=== PATIENT | female | born 1955 | race Caucasian/White ===

== ENCOUNTER 2018-05-30 06:32 | Outpatient (CLI) | payer BC ==
[2018-05-30 13:21] LABS: #Basophils 0.1 thou/uL (0.0-0.2); #Eosinphils 0.3 thou/uL (0.0-0.7); #Monocytes 0.6 thou/uL (0.11-0.59); #Neutrophils 4.8 thou/uL (1.40-6.50); %Basophils 0.9 % (0.0-1.0); %Eosinophils 3.5 % (0.0-10.0); %Lymphocytes 33.9 % (21.0-51.0); %Monocytes 6.5 % (0.0-10.0); %Neutrophils 55.2 % (42.0-75.0); Hemoglobin 13.5 g/dL (12.0-16.0); Mean Corpuscular HGB CONC 32.1 g/dL (32.0-36.0); Mean Corpuscular Hemoglobin 29.1 pg (27.0-31.0); Mean Corpuscular Volume 90.6 fL (78.0-98.0); Mean Platelet Volume 7.5 fL (7.4-10.4); Platelet Count 291 thou/uL (130-400); RBC Distribution Width 12.3 % (11.5-14.5); Red Blood Cell (RBC) Count 4.63 mill/uL (4.20-5.40); White Blood Cell (WBC) Count 8.8 thou/uL (4.8-10.8)
[2018-05-30 13:40] LABS: Anion Gap 11 mmol/L (10-20); BUN (Urea Nitrogen) 18 mg/dL (9.8-20.1); Calc. Creatinine Clearance 0 mL/min (70-130); Calcium 9.6 mg/dL (7.8-10.44); Carbon Dioxide 29 mmol/L (22-29); Chloride 104 mmol/L (98-107); Estimated GFR-MDRD 90; Glucose 84 mg/dL (70-105); Potassium 4.2 mmol/L (3.5-5.1); Sodium 140 mmol/L (136-145)
[2018-05-30 14:22] LABS: INR-International Normal Ratio 0.9; Prothrombin Time 12.7 SEC (12.0-14.7)
--- NOTE | 2018-05-31 21:02 | EKG ---
Test Reason : Blood Pressure : / mmHG Vent. Rate : 076 BPM Atrial Rate : 076 BPM P-R Int : 158 ms QRS Dur : 084 ms QT Int : 376 ms P-R-T Axes : 083 -36 033 degrees QTc Int : 423 ms Normal sinus rhythm Left axis deviation Pulmonary disease pattern Abnormal ECG When compared with ECG of 02-NOV-2016 16:54, No significant change was found Confirmed by Tim GRESHAM ([id number]) on 05/31/2018 9:02:26 PM Referred By: WILLY Confirmed By:Tim GRESHAM
== END 2018-05-30 06:33 | disposition home or self-care (01) ==
LOC: LABBT 06:32
PROVIDERS: ATTEND Orthopaedic Surgery
DX: Z01.818 Encounter for other preprocedural examination (principal); M17.11 Unilateral primary osteoarthritis, right knee
CPT/HCPCS: 80048; 85025; 85610; 87081; 93005; 93010

== ENCOUNTER 2018-05-30 09:15 | Inpatient (IN) | payer BC ==
[2018-05-30 09:44] VITALS: BMI 49.3
[2018-06-04] MEDS ORDERED: CEFAZOLIN 2 GM/50 ML BAG ONE (05:57)
[2018-06-04] MEDS ORDERED: Tranexamic Acid 1,000 MG/10 ML VIAL ONE ×2 (05:57→08:45)
[2018-06-04] MEDS ORDERED: Sodium Chloride 0.9% 100 ML ONE (05:57)
[2018-06-04] MEDS ORDERED: Fentanyl 100 MCG/2 ML VIAL ONE ×4 (06:21→09:08)
[2018-06-04] MEDS ORDERED: Midazolam HCl 2 mg/2 ml Vial ONE (06:21)
[2018-06-04] MEDS ORDERED: Lidocaine 1% (PF) 30 ML VIAL ONE (06:28)
[2018-06-04] MEDS ORDERED: Promethazine HCl 25 MG/ML VIAL IM PRN ×3 (06:35→08:47)
[2018-06-04] MEDS ORDERED: traMADol HCl 50 MG TAB PO PRN ×2 (06:35)
[2018-06-04] MEDS ORDERED: Ondansetron PF 4 MG/2 ML Vial IVP PRN ×2 (06:35→08:47)
[2018-06-04] MEDS ORDERED: Ropivacaine 0.2% 550 ML 550 ML NERVE BLCK SCH (06:35)
[2018-06-04] MEDS ORDERED: Zolpidem Tartrate 5 MG TAB PO PRN ×2 (06:35→08:47)
[2018-06-04] MEDS ORDERED: Ondansetron HCl/PF 4 MG/2 ML Vial IVP PRN (07:39)
[2018-06-04] MEDS ORDERED: Promethazine HCl 25 MG/ML VIAL SLOW IVP PRN (07:39)
[2018-06-04] MEDS ORDERED: Acetaminophen 325 MG TAB PO PRN (08:47)
[2018-06-04] MEDS ORDERED: diphenhydrAMINE 25 MG CAP PO PRN (08:47)
[2018-06-04] MEDS ORDERED: CEFAZOLIN/Water 2 GM/20 ML SYRINGE SLOW IVP SCH (09:00)
--- NOTE | 2018-06-04 09:22 | RAD ---
RIGHT KNEE TWO VIEWS: History: Post op. FINDINGS: The total knee prosthesis is in good position. No signs of fracture. IMPRESSION: Placement of a total knee prosthesis. POS: [facility]
[2018-06-04] MEDS: Aspirin 81 mg Enteric Coated Tablet PO SCH ×2 (10:23→21:22)
[2018-06-04] MEDS: Multivitamin W/ Minerals 1 TAB PO SCH (10:27)
[2018-06-04] MEDS: Ferrous Gluconate 324 MG TAB PO SCH ×2 (10:27→19:42)
[2018-06-04] MEDS: Senokot S 8.6-50 MG TAB PO SCH ×2 (10:28→19:42)
[2018-06-04] MEDS: Fentanyl 100 MCG/2 ML VIAL IV PRN ×2 (10:34→12:16)
[2018-06-04] MEDS ORDERED: Loperamide HCl 2 MG CAP PO PRN (11:00)
[2018-06-04] MEDS ORDERED: Cepastat Lozenges 1 LOZ PO PRN (11:00)
[2018-06-04] MEDS ORDERED: Artificial Tears 18 DROP/0.9 ML EA EYE PRN (11:00)
[2018-06-04] MEDS ORDERED: Diabetic Tussin 200 MG/10 ML UDCUP PO PRN (11:00)
[2018-06-04] MEDS ORDERED: Eucerin (Mineral Oil/Petrolatum,White) 30 gm Jar TOP PRN (11:00)
[2018-06-04] MEDS ORDERED: hydrALAZINE 20 MG/ML VIAL SLOW IVP PRN (11:00)
[2018-06-04] MEDS ORDERED: Sodium Chloride 0.65% Nasal 44 ML BOT EA NARE PRN (11:00)
--- NOTE | 2018-06-04 11:04 | PDOC.PN ---
- Subjective Encounter Start Date: 06/04/18 Encounter Start Time: 14:00 -: old records requested/rev consulted for medical management s/p right knee replacement pain controlled Patient seen and examined. No new complaints. - Objective Resuscitation Status - Order Detail: 06/04/18 11:00 Resuscitation Status Routine Resuscitation Status: FULL: Full Resuscitation MAR Reviewed: Yes Vital Signs & Weight: Vital Signs (12 hours) Temp Pulse Resp BP Pulse Ox 06/04/18 10:00 97.3 F L 69 16 166/80 H 98 Weight Weight 315 lb Additional Labs: old [employer] report reviewed Radiology Reviewed by me: Yes EKG Reviewed by me: Yes (pulmonary disease pattern) Phys Exam - Physical Examination Constitutional: NAD HEENT: PERRLA, moist MMs, sclera anicteric Neck: no JVD, supple Respiratory: no wheezing, no rales, no rhonchi Cardiovascular: RRR, no significant murmur, no rub Gastrointestinal: soft, non-tender, no distention, positive bowel sounds morbid obesity Musculoskeletal: no edema, pulses present surgical site with dressing, nerve block+, sims+ Neurological: non-focal, normal sensation, moves all 4 limbs Lymphatic: no nodes Psychiatric: normal affect, A&O x 3 Skin: no rash, normal turgor Dx/Plan (1) Status post total right knee replacement Code(s): Z96.651 - PRESENCE OF RIGHT ARTIFICIAL KNEE JOINT Status: Acute (2) Degenerative joint disease (DJD) of lumbar spine Code(s): M47.816 - SPONDYLOSIS W/O MYELOPATHY OR RADICULOPATHY, LUMBAR REGION Status: Chronic (3) Morbid obesity with BMI of 45.0-49.9, adult Code(s): E66.01 - MORBID (SEVERE) OBESITY DUE TO EXCESS CALORIES; Z68.42 - BODY MASS INDEX (BMI) 45.0-49.9, ADULT Status: Chronic (4) Osteoarthritis Code(s): M19.90 - UNSPECIFIED OSTEOARTHRITIS, UNSPECIFIED SITE Status: Chronic - Plan cont current plan of care, plan discussed w/ family, PT/OT * medication reviewed as below * symptomatic treatment * continue aspirin for DVT prophylaxis * add pepcid for GI prophylaxis * code status full code * nerve block as per anesthesia * PT/OT as per JU protocol treatment. * discussed with family bedside Review of Systems - Review of Systems ENT: negative: Ear Pain, Ear Discharge, Nose Pain, Nose Discharge, Nose Congestion, Mouth Pain, Mouth Swelling, Throat Pain, Throat Swelling, Other Respiratory: negative: Cough, Dry, Shortness of Breath, Hemoptysis, SOB with Excertion, Pleuritic Pain, Sputum, Wheezing Cardiovascular: negative: chest pain, palpitations, orthopnea, paroxysmal nocturnal dyspnea, edema, light headedness, other Gastrointestinal: negative: Nausea, Vomiting, Abdominal Pain, Diarrhea, Constipation, Melena, Hematochezia, Other Genitourinary: negative: Dysuria, Frequency, Incontinence, Hematuria, Retention , Other Musculoskeletal: negative: Neck Pain, Shoulder Pain, Arm Pain, Back Pain, Hand Pain, Leg Pain, Foot Pain, Other Skin: negative: Rash, Lesions, Fabrizio, Bruising, Other - Medications/Allergies Allergies/Adverse Reactions: Allergies Allergy/AdvReac Type Severity Reaction Status Date / Time No Known Allergies Allergy Verified 05/30/18 09:44 Medications: Current Medications Acetaminophen (Tylenol) 650 mg PO Q4H PRN PRN Reason: Headache/Fever or Pain Hydrocodone Bitart/Acetaminophen ([place] 10/325) 1 tab PO Q4H PRN PRN Reason: Pain (1-3) 2ND LINE Hydrocodone Bitart/Acetaminophen ([place] 10/325) 2 tab PO Q4H PRN PRN Reason: PAIN (4-6) 2ND LINE Artificial Tears (Tears Naturale) 2 drop EA EYE PRN PRN PRN Reason: Dry Eyes Aspirin (Ecotrin) 81 mg PO BID [facility] Last Admin: 06/04/18 10:23 Dose: Not Given Diphenhydramine HCl (Benadryl) 25 mg PO Q6H PRN PRN Reason: Itching Famotidine (Pepcid) 20 mg PO BID [facility] Fentanyl (Sublimaze) 50 mcg IV Q1H PRN PRN Reason: Breakthrough Pain Last Admin: 06/04/18 10:34 Dose: 50 mcg Ferrous Gluconate (Fergon) 324 mg PO BID [facility] Last Admin: 06/04/18 10:27 Dose: Not Given Guaifenesin (Robitussin Sf) 200 mg PO Q4H PRN PRN Reason: Cough Hydralazine HCl (Apresoline) 10 mg SLOW IVP Q4H PRN PRN Reason: SBP > 180 and HR < 70 Ropivacaine (Ropivacaine 0.2% 550 Ml) 550 mls @ 10 mls/hr NERVE BLCK INF [facility] Cefazolin Sodium/Dextrose 2 gm (/ Device) 50 mls @ 100 mls/hr IVPB Q8HR [facility] Stop: 06/04/18 22:29 Iron/Minerals/Multivitamins (Theragran M) 1 tab PO DAILY [facility] Last Admin: 06/04/18 10:27 Dose: Not Given Ketorolac Tromethamine (Toradol) 30 mg IVP Q6H PRN PRN Reason: Moderate Pain (4-6) Stop: 06/07/18 06:36 Loperamide HCl (Imodium) 2 mg PO PRN PRN PRN Reason: Diarrhea/Loose Stools Mineral Oil/White Petrolatum (Eucerin Cream) 0 gm TOP BIDPRN PRN PRN Reason: Dry Skin Ondansetron HCl (Zofran) 4 mg IVP Q6H PRN PRN Reason: Nausea/Vomiting Promethazine HCl (Phenergan) 12.5 mg IM Q4H PRN PRN Reason: Nausea/Vomiting Senna/Docusate Sodium (Senokot S) 2 tab PO BID [facility] Last Admin: 06/04/18 10:28 Dose: Not Given Sodium Chloride (Flush - Normal Saline) 10 ml IVF PRN PRN PRN Reason: Saline Flush Sodium Chloride ([place] Nasal [place] 0.65%) 0 ml EA NARE QIDPRN PRN PRN Reason: Nasal Congestion Throat Lozenges (Cepastat Lozenges) 1 jyoti PO Q2H PRN PRN Reason: Sore Throat Tramadol HCl (Ultram) 50 mg PO Q6H PRN PRN Reason: Mild Pain (1-3) Tramadol HCl (Ultram) 100 mg PO Q6H PRN PRN Reason: Moderate Pain 4-6 Zolpidem Tartrate (Ambien) 5 mg PO HSPRN PRN PRN Reason: Insomnia
--- NOTE | 2018-06-04 12:35 | OP ---
DATE OF PROCEDURE: 06/04/2018 PREOPERATIVE DIAGNOSIS: Degenerative joint disease, right knee. POSTOPERATIVE DIAGNOSIS: Degenerative joint disease, right knee. PROCEDURE PERFORMED: Right total knee arthroplasty. ASSISTANT CASINO SHIFT MANAGER: Mari Leija PA-C. BLOOD LOSS: Minimal. SPECIMEN: None. DRAINS: None. COMPLICATION: None. IMPLANTS USED: [place] triathlon 4 femur, 4 tibia, 9 mm CS X3 polyethylene, and a 32 patella. PROCEDURE IN DETAIL: After informed consent was obtained in the preoperative holding area, the patient was taken to the operative suite where general anesthesia was induced. Once adequate level of general anesthesia was obtained, the patient was positioned and a well-padded tourniquet was placed around the right proximal thigh. The right lower extremity was then prepped and draped in the usual sterile fashion. Prior to exsanguination, a time-out was called and all members of the surgical team agreed upon site, surgeon, and patient. The extremity was then exsanguinated and the tourniquet was raised. A midline longitudinal incision was then made directly over the patella extending 2 fingerbreadths above the superior pole of the patella and 2 fingerbreadths inferior to the inferior patellar pole of the patella. Deeper subcutaneous layers were dissected sharply and local bleeding was controlled with Bovie electrocautery. A quad tendon longitudinal split was then made sharply and a median parapatellar arthrotomy was carried out both sharp and with Bovie electrocautery, carried down to 1 fingerbreadth medial to the tibial tubercle. The knee was then placed into flexion and the patella was everted nicely, and a copious fat pad ectomy was performed allowing for greater exposure of the tibia. The computer-assisted distal femoral fiducial was then placed and pinned firmly, and the distal femoral cutting guide was pinned firmly into place. The oscillating saw was then used to remove the appropriate amount of bone. The 4-in-1 cutting block was then placed on the distal femur and the oscillating saw was used to remove the appropriate amount of bone off the anterior, posterior, and chamfer cuts. After completion of bone cuts, the anterior cruciate ligament was resected sharply and the posterior cruciate ligament retractor was placed and the tibia was subluxed for better exposure. Partial meniscectomies were carried out, and the tibial computer-assisted fiducial was pinned, and the cutting guide was placed. Oscillating saw was then used to remove the bone, with Hohmann retractors used to take care and protect the collateral ligaments. After the tibial resection was performed, a laminar shift production associate was placed in between the freshened bone cuts. The knee placed at 90 degrees and further bilateral meniscectomies were carried out, and the curved osteotome and curettage were used to remove any excess bone spurs in the posterior compartment. The trial femoral component, tibial baseplate were placed with the appropriate polyethylene trial insert with an appropriate polyethylene spacer and patellar button. The knee was taken through full range of motion with flexion and extension from 0 to 90 degrees and patellar broach squarely in the trochlea without any squinting or subluxation noted. The knee was also stable to varus and valgus stressing at 0, 15, 45, and 90 degrees of flexion. The drawer was negative. All trial components were then removed and the keel punch was used to provide the appropriate defect in the tibia with a mallet. The freshened bone cuts were copiously irrigated with pulsatile lavage of about 1.5 L to remove all excess debris. The freshened bone cuts were then dried with suction and lap sponge. The knee was placed in flexion and retractors were placed to provide access to all bone cuts. Tobramycin-impregnated methyl methacrylate cement was then placed on the freshened bone cuts and implants which were malleted firmly into place. Curettage and [place] elevators were used to remove any excess bone cement. The knee was placed into full extension and the patellar button was placed under compression, and the cement was allowed to cure. Once completed, the components were again taken through full range of motion and copious irrigation of the knee was carried out with another liter of normal saline. All components were inspected fully with full range of motion and varus and valgus stressing. There was no laxity noted and full extension was observed clinically. Primary closure was accomplished with #2 interrupted Vicryl stitch of the arthrotomy defect. This was oversewn with a #2 running Quill barbed stitch. The gravitational platelet system was then injected into the arthrotomy prior to closure. The subcutaneous layer was then closed with a running 0 barbed Monocryl stitch and skin closure accomplished with a running subcuticular 3-0 Monocryl barbed Quill stitch and augmented with cement on the skin. Tourniquet was lowered. Good spontaneous return of distal pulses was noted clinically and a sterile dressing was applied to the incision. The procedure was terminated without any complications. The patient was awakened in the operative suite and the patient was taken to the recovery room in stable condition. Job ID: [id number]
[2018-06-04] MEDS: HYDROcodone/Acetaminophen 10/325 mg Tablet PO PRN ×2 (14:43→21:28)
[2018-06-04] MEDS: CEFAZOLIN 2 GM/50 ML-DEXTROSE 2 GM in Premix Bag 1 BAG IVPB SCH ×2 (14:46→21:23)
[2018-06-04] MEDS ORDERED: Ropivacaine 0.5% HCl/PF (150 MG/30 ML VIAL) ONE (15:31)
[2018-06-04] MEDS ORDERED: Ropivacaine 0.2% HCl/PF (40 MG/20 ML VIAL) ONE (15:31)
[2018-06-04] MEDS ORDERED: Bupivacaine 0.25% HCL 30 ML VIAL ONE (15:31)
[2018-06-04] MEDS ORDERED: Ondansetron PF 4 MG/2 ML Vial ONE (16:34)
[2018-06-04] MEDS ORDERED: Lidocaine 1% PF 5 ML VIAL ONE (16:34)
[2018-06-04] MEDS ORDERED: ePHEDrine/0.9% NaCl/PF SYRINGE 50 mg/10 ml ONE (16:34)
[2018-06-04] MEDS ORDERED: PHENYLEPHRINE-NS 100 MCG/ML 10 ML SYRINGE ONE (16:34)
[2018-06-04] MEDS ORDERED: Rocuronium Bromide 10 MG/ML (10ML VIAL) ONE (16:34)
[2018-06-04] MEDS ORDERED: Ketorolac Tromethamine 30 MG/ML VIAL ONE (16:34)
[2018-06-04] MEDS ORDERED: PROPOFOL 200 MG/20 ML VIAL ONE (16:34)
[2018-06-04] MEDS ORDERED: Glycopyrrolate 0.2 MG/ML 5 ML SYRINGE ONE (16:34)
[2018-06-04] MEDS: Ketorolac Tromethamine 30 MG/ML VIAL IVP PRN (17:38)
[2018-06-04] MEDS: Famotidine 20 MG TAB PO SCH (21:22)
[2018-06-05] MEDS: HYDROcodone/Acetaminophen 10/325 mg Tablet PO PRN ×2 (02:07→05:54)
[2018-06-05] MEDS: Ketorolac Tromethamine 30 MG/ML VIAL IVP PRN ×3 (04:40→23:13)
[2018-06-05] MEDS: Fentanyl 100 MCG/2 ML VIAL IV PRN (04:46)
[2018-06-05 08:15] LABS: Hemoglobin 10.7 g/dL (12.0-16.0); Mean Corpuscular HGB CONC 33.1 g/dL (32.0-36.0); Mean Corpuscular Hemoglobin 30.8 pg (27.0-31.0); Mean Corpuscular Volume 92.9 fL (78.0-98.0); Mean Platelet Volume 7.6 fL (7.4-10.4); Platelet Count 234 thou/uL (130-400); RBC Distribution Width 11.9 % (11.5-14.5); Red Blood Cell (RBC) Count 3.49 mill/uL (4.20-5.40); White Blood Cell (WBC) Count 8.5 thou/uL (4.8-10.8)
[2018-06-05] MEDS: Senokot S 8.6-50 MG TAB PO SCH ×2 (08:29→20:31)
[2018-06-05] MEDS: Multivitamin W/ Minerals 1 TAB PO SCH (08:30)
[2018-06-05] MEDS: Ferrous Gluconate 324 MG TAB PO SCH ×2 (08:30→20:31)
[2018-06-05] MEDS: Aspirin 81 mg Enteric Coated Tablet PO SCH ×2 (08:30→20:31)
[2018-06-05] MEDS: Famotidine 20 MG TAB PO SCH ×2 (08:30→20:31)
--- NOTE | 2018-06-05 12:29 | PDOC.PN ---
- Subjective Encounter Start Date: 06/05/18 Encounter Start Time: 08:50 Patient seen and examined. No new complaints. No overnight events - Objective Resuscitation Status - Order Detail: 06/04/18 11:00 Resuscitation Status Routine Resuscitation Status: FULL: Full Resuscitation MAR Reviewed: Yes Vital Signs & Weight: Vital Signs (12 hours) Temp Pulse Resp BP Pulse Ox 06/05/18 07:45 96 06/05/18 07:33 98.6 F 77 20 130/72 95 06/05/18 04:50 98.2 F 86 18 128/72 96 Weight Weight 315 lb I&O: 06/04/18 06/05/18 06/06/18 06:59 06:59 06:59 Intake Total 2660 Output Total 1750 Balance 910 Result Diagrams: 06/05/18 07:15 Phys Exam - Physical Examination Constitutional: NAD HEENT: PERRLA, moist MMs, sclera anicteric Neck: no JVD, supple Respiratory: no wheezing, no rales, no rhonchi Cardiovascular: RRR, no significant murmur, no rub Gastrointestinal: soft, non-tender, no distention, positive bowel sounds Musculoskeletal: no edema, pulses present surgical site with dressing, nerve block in place Neurological: non-focal, normal sensation, moves all 4 limbs Lymphatic: no nodes Psychiatric: normal affect, A&O x 3 Skin: no rash, normal turgor Dx/Plan (1) Status post total right knee replacement Code(s): Z96.651 - PRESENCE OF RIGHT ARTIFICIAL KNEE JOINT Status: Acute (2) Degenerative joint disease (DJD) of lumbar spine Code(s): M47.816 - SPONDYLOSIS W/O MYELOPATHY OR RADICULOPATHY, LUMBAR REGION Status: Chronic (3) Morbid obesity with BMI of 45.0-49.9, adult Code(s): E66.01 - MORBID (SEVERE) OBESITY DUE TO EXCESS CALORIES; Z68.42 - BODY MASS INDEX (BMI) 45.0-49.9, ADULT Status: Chronic (4) Osteoarthritis Code(s): M19.90 - UNSPECIFIED OSTEOARTHRITIS, UNSPECIFIED SITE Status: Chronic - Plan cont current plan of care, plan discussed w/ family, PT/OT * medication reviewed as below * symptomatic treatment * continue aspirin for DVT prophylaxis * add pepcid for GI prophylaxis * nerve block as per anesthesia * PT/OT as per JU protocol treatment. * discussed with family bedside. * discharge per primary team Review of Systems - Review of Systems ENT: negative: Ear Pain, Ear Discharge, Nose Pain, Nose Discharge, Nose Congestion, Mouth Pain, Mouth Swelling, Throat Pain, Throat Swelling, Other Respiratory: negative: Cough, Dry, Shortness of Breath, Hemoptysis, SOB with Excertion, Pleuritic Pain, Sputum, Wheezing Cardiovascular: negative: chest pain, palpitations, orthopnea, paroxysmal nocturnal dyspnea, edema, light headedness, other Gastrointestinal: negative: Nausea, Vomiting, Abdominal Pain, Diarrhea, Constipation, Melena, Hematochezia, Other Genitourinary: negative: Dysuria, Frequency, Incontinence, Hematuria, Retention , Other Musculoskeletal: negative: Neck Pain, Shoulder Pain, Arm Pain, Back Pain, Hand Pain, Leg Pain, Foot Pain, Other Skin: negative: Rash, Lesions, Fabrizio, Bruising, Other - Medications/Allergies Allergies/Adverse Reactions: Allergies Allergy/AdvReac Type Severity Reaction Status Date / Time No Known Allergies Allergy Verified 05/30/18 09:44 Medications: Current Medications Acetaminophen (Tylenol) 650 mg PO Q4H PRN PRN Reason: Headache/Fever or Pain Hydrocodone Bitart/Acetaminophen ([place] 10/325) 1 tab PO Q4H PRN PRN Reason: Pain (1-3) 2ND LINE Hydrocodone Bitart/Acetaminophen ([place] 10/325) 2 tab PO Q4H PRN PRN Reason: PAIN (4-6) 2ND LINE Last Admin: 06/05/18 05:54 Dose: 2 tab Artificial Tears (Tears Naturale) 2 drop EA EYE PRN PRN PRN Reason: Dry Eyes Aspirin (Ecotrin) 81 mg PO BID [facility] Last Admin: 06/05/18 08:30 Dose: 81 mg Diphenhydramine HCl (Benadryl) 25 mg PO Q6H PRN PRN Reason: Itching Famotidine (Pepcid) 20 mg PO BID [facility] Last Admin: 06/05/18 08:30 Dose: 20 mg Fentanyl (Sublimaze) 50 mcg IV Q1H PRN PRN Reason: Breakthrough Pain Last Admin: 06/05/18 04:46 Dose: 50 mcg Ferrous Gluconate (Fergon) 324 mg PO BID [facility] Last Admin: 06/05/18 08:30 Dose: 324 mg Guaifenesin (Robitussin Sf) 200 mg PO Q4H PRN PRN Reason: Cough Hydralazine HCl (Apresoline) 10 mg SLOW IVP Q4H PRN PRN Reason: SBP > 180 and HR < 70 Ropivacaine (Ropivacaine 0.2% 550 Ml) 550 mls @ 10 mls/hr NERVE BLCK INF [facility] Iron/Minerals/Multivitamins (Theragran M) 1 tab PO DAILY [facility] Last Admin: 06/05/18 08:30 Dose: 1 tab Ketorolac Tromethamine (Toradol) 30 mg IVP Q6H PRN PRN Reason: Moderate Pain (4-6) Stop: 06/07/18 06:36 Last Admin: 06/05/18 04:40 Dose: 30 mg Loperamide HCl (Imodium) 2 mg PO PRN PRN PRN Reason: Diarrhea/Loose Stools Mineral Oil/White Petrolatum (Eucerin Cream) 0 gm TOP BIDPRN PRN PRN Reason: Dry Skin Ondansetron HCl (Zofran) 4 mg IVP Q6H PRN PRN Reason: Nausea/Vomiting Last Admin: 06/05/18 08:23 Dose: 4 mg Promethazine HCl (Phenergan) 12.5 mg IM Q4H PRN PRN Reason: Nausea/Vomiting Senna/Docusate Sodium (Senokot S) 2 tab PO BID [facility] Last Admin: 06/05/18 08:29 Dose: 2 tab Sodium Chloride (Flush - Normal Saline) 10 ml IVF PRN PRN PRN Reason: Saline Flush Last Admin: 06/05/18 08:24 Dose: 10 ml Sodium Chloride ([place] Nasal [place] 0.65%) 0 ml EA NARE QIDPRN PRN PRN Reason: Nasal Congestion Throat Lozenges (Cepastat Lozenges) 1 jyoti PO Q2H PRN PRN Reason: Sore Throat Tramadol HCl (Ultram) 50 mg PO Q6H PRN PRN Reason: Mild Pain (1-3) Tramadol HCl (Ultram) 100 mg PO Q6H PRN PRN Reason: Moderate Pain 4-6 Zolpidem Tartrate (Ambien) 5 mg PO HSPRN PRN PRN Reason: Insomnia
--- NOTE | 2018-06-05 17:48 | PDOC.EVN ---
Event Note - Event Note Event Note: with Leticia Jones, pos CVA, changed to inpt
[2018-06-06] MEDS: HYDROcodone/Acetaminophen 10/325 mg Tablet PO PRN (06:14)
[2018-06-06 07:29] LABS: Mean Corpuscular HGB CONC 32.4 g/dL (32.0-36.0); Mean Corpuscular Hemoglobin 30.3 pg (27.0-31.0); Mean Corpuscular Volume 93.6 fL (78.0-98.0); Mean Platelet Volume 7.2 fL (7.4-10.4); Platelet Count 206 thou/uL (130-400); RBC Distribution Width 11.7 % (11.5-14.5); White Blood Cell (WBC) Count 9.7 thou/uL (4.8-10.8)
[2018-06-06] MEDS: Ferrous Gluconate 324 MG TAB PO SCH ×2 (08:11→21:24)
[2018-06-06] MEDS: Multivitamin W/ Minerals 1 TAB PO SCH (08:11)
[2018-06-06] MEDS: Aspirin 81 mg Enteric Coated Tablet PO SCH ×2 (08:11→21:24)
[2018-06-06] MEDS: Famotidine 20 MG TAB PO SCH ×2 (08:11→21:23)
[2018-06-06] MEDS: Senokot S 8.6-50 MG TAB PO SCH ×2 (08:11→21:24)
[2018-06-06] MEDS: Ketorolac Tromethamine 30 MG/ML VIAL IVP PRN ×3 (08:47→21:23)
--- NOTE | 2018-06-06 12:16 | PDOC.PN ---
- Subjective Encounter Start Date: 06/06/18 Encounter Start Time: 08:35 Patient seen and examined. No new complaints. No overnight events - Objective Resuscitation Status - Order Detail: 06/04/18 11:00 Resuscitation Status Routine Resuscitation Status: FULL: Full Resuscitation MAR Reviewed: Yes Vital Signs & Weight: Vital Signs (12 hours) Temp Pulse Resp BP Pulse Ox 06/06/18 07:33 99.8 F H 90 18 113/64 94 L 06/06/18 07:20 94 L 06/06/18 04:10 99.8 F H 88 16 122/67 93 L Weight Admit Weight 315 lb Weight 315 lb I&O: 06/05/18 06/06/18 06/07/18 06:59 06:59 06:59 Intake Total 2660 1690 Output Total 1750 Balance 910 1690 Result Diagrams: 06/06/18 07:20 Phys Exam - Physical Examination Constitutional: NAD HEENT: PERRLA, moist MMs, sclera anicteric Neck: no JVD, supple Respiratory: no wheezing, no rales, no rhonchi Cardiovascular: RRR, no significant murmur, no rub Gastrointestinal: soft, non-tender, no distention, positive bowel sounds Musculoskeletal: no edema, pulses present Neurological: non-focal, normal sensation, moves all 4 limbs Lymphatic: no nodes Psychiatric: normal affect, A&O x 3 Skin: no rash, normal turgor Dx/Plan (1) Status post total right knee replacement Code(s): Z96.651 - PRESENCE OF RIGHT ARTIFICIAL KNEE JOINT Status: Acute (2) Degenerative joint disease (DJD) of lumbar spine Code(s): M47.816 - SPONDYLOSIS W/O MYELOPATHY OR RADICULOPATHY, LUMBAR REGION Status: Chronic (3) Morbid obesity with BMI of 45.0-49.9, adult Code(s): E66.01 - MORBID (SEVERE) OBESITY DUE TO EXCESS CALORIES; Z68.42 - BODY MASS INDEX (BMI) 45.0-49.9, ADULT Status: Chronic (4) Osteoarthritis Code(s): M19.90 - UNSPECIFIED OSTEOARTHRITIS, UNSPECIFIED SITE Status: Chronic (5) Anemia, normocytic normochromic Code(s): D64.9 - ANEMIA, UNSPECIFIED Status: Chronic - Plan cont current plan of care, plan discussed w/ family, PT/OT * medication reviewed as below * symptomatic treatment * medically stable * continue PT * discharge per primary team * discussed with family. Review of Systems - Review of Systems ENT: negative: Ear Pain, Ear Discharge, Nose Pain, Nose Discharge, Nose Congestion, Mouth Pain, Mouth Swelling, Throat Pain, Throat Swelling, Other Respiratory: negative: Cough, Dry, Shortness of Breath, Hemoptysis, SOB with Excertion, Pleuritic Pain, Sputum, Wheezing Cardiovascular: negative: chest pain, palpitations, orthopnea, paroxysmal nocturnal dyspnea, edema, light headedness, other Gastrointestinal: negative: Nausea, Vomiting, Abdominal Pain, Diarrhea, Constipation, Melena, Hematochezia, Other Genitourinary: negative: Dysuria, Frequency, Incontinence, Hematuria, Retention , Other Musculoskeletal: negative: Neck Pain, Shoulder Pain, Arm Pain, Back Pain, Hand Pain, Leg Pain, Foot Pain, Other Skin: negative: Rash, Lesions, Fabrizio, Bruising, Other - Medications/Allergies Allergies/Adverse Reactions: Allergies Allergy/AdvReac Type Severity Reaction Status Date / Time No Known Allergies Allergy Verified 05/30/18 09:44 Medications: Current Medications Acetaminophen (Tylenol) 650 mg PO Q4H PRN PRN Reason: Headache/Fever or Pain Hydrocodone Bitart/Acetaminophen ([place] 10/325) 1 tab PO Q4H PRN PRN Reason: Pain (1-3) 2ND LINE Last Admin: 06/06/18 06:14 Dose: 1 tab Hydrocodone Bitart/Acetaminophen ([place] 10/325) 2 tab PO Q4H PRN PRN Reason: PAIN (4-6) 2ND LINE Last Admin: 06/05/18 05:54 Dose: 2 tab Artificial Tears (Tears Naturale) 2 drop EA EYE PRN PRN PRN Reason: Dry Eyes Aspirin (Ecotrin) 81 mg PO BID [facility] Last Admin: 06/06/18 08:11 Dose: 81 mg Diphenhydramine HCl (Benadryl) 25 mg PO Q6H PRN PRN Reason: Itching Famotidine (Pepcid) 20 mg PO BID [facility] Last Admin: 06/06/18 08:11 Dose: 20 mg Fentanyl (Sublimaze) 50 mcg IV Q1H PRN PRN Reason: Breakthrough Pain Last Admin: 06/05/18 04:46 Dose: 50 mcg Ferrous Gluconate (Fergon) 324 mg PO BID [facility] Last Admin: 06/06/18 08:11 Dose: 324 mg Guaifenesin (Robitussin Sf) 200 mg PO Q4H PRN PRN Reason: Cough Hydralazine HCl (Apresoline) 10 mg SLOW IVP Q4H PRN PRN Reason: SBP > 180 and HR < 70 Ropivacaine (Ropivacaine 0.2% 550 Ml) 550 mls @ 10 mls/hr NERVE BLCK INF [facility] Iron/Minerals/Multivitamins (Theragran M) 1 tab PO DAILY [facility] Last Admin: 06/06/18 08:11 Dose: 1 tab Ketorolac Tromethamine (Toradol) 30 mg IVP Q6H PRN PRN Reason: Moderate Pain (4-6) Stop: 06/07/18 06:36 Last Admin: 06/06/18 08:47 Dose: 30 mg Loperamide HCl (Imodium) 2 mg PO PRN PRN PRN Reason: Diarrhea/Loose Stools Mineral Oil/White Petrolatum (Eucerin Cream) 0 gm TOP BIDPRN PRN PRN Reason: Dry Skin Ondansetron HCl (Zofran) 4 mg IVP Q6H PRN PRN Reason: Nausea/Vomiting Last Admin: 06/05/18 08:23 Dose: 4 mg Promethazine HCl (Phenergan) 12.5 mg IM Q4H PRN PRN Reason: Nausea/Vomiting Senna/Docusate Sodium (Senokot S) 2 tab PO BID [facility] Last Admin: 06/06/18 08:11 Dose: 2 tab Sodium Chloride (Flush - Normal Saline) 10 ml IVF PRN PRN PRN Reason: Saline Flush Last Admin: 06/06/18 08:53 Dose: 10 ml Sodium Chloride ([place] Nasal [place] 0.65%) 0 ml EA NARE QIDPRN PRN PRN Reason: Nasal Congestion Throat Lozenges (Cepastat Lozenges) 1 jyoti PO Q2H PRN PRN Reason: Sore Throat Tramadol HCl (Ultram) 50 mg PO Q6H PRN PRN Reason: Mild Pain (1-3) Tramadol HCl (Ultram) 100 mg PO Q6H PRN PRN Reason: Moderate Pain 4-6 Zolpidem Tartrate (Ambien) 5 mg PO HSPRN PRN PRN Reason: Insomnia
[2018-06-07] MEDS: HYDROcodone/Acetaminophen 10/325 mg Tablet PO PRN (08:05)
[2018-06-07 08:06] VITALS: BP 165/73; TEMP 98.5
[2018-06-07] MEDS: Multivitamin W/ Minerals 1 TAB PO SCH (08:06)
[2018-06-07] MEDS: Senokot S 8.6-50 MG TAB PO SCH (08:06)
[2018-06-07] MEDS: Famotidine 20 MG TAB PO SCH (08:06)
[2018-06-07] MEDS: Ferrous Gluconate 324 MG TAB PO SCH (08:06)
[2018-06-07] MEDS: Aspirin 81 mg Enteric Coated Tablet PO SCH (08:06)
--- NOTE | 2018-06-07 10:42 | PRG ---
DATE OF SERVICE: 06/07/2018 DISCHARGE SUMMARY/PROGRESS NOTE/SIGN OUT NOTE/TRANSFER OF CARE NOTE: PRIMARY CARE PHYSICIAN: Dr. Kelin Rodriguez. DISCHARGE DISPOSITION: Home. PRIMARY DISCHARGE DIAGNOSIS: Status post right total knee replacement. SECONDARY DISCHARGE DIAGNOSES: Morbid obesity with BMI of 49, osteoarthritis, degenerative joint disease of lumbar spine, normocytic normochromic anemia. PRIMARY PROCEDURE/OPERATION: Right total knee replacement by Dr. Gonzalez. RADIOLOGICAL INVESTIGATION: Knee x-ray. SIGNIFICANT LABORATORY DATA: WBC 9.7, hemoglobin 10.0, and platelets 206. DISCHARGE MEDICATIONS: 1. Mobic 15 mg p.o. daily p.r.n. 2. Aspirin 81 mg p.o. b.i.d. 3. Pain medication will be deferred to primary team. CONTRAINDICATION: None. CODE STATUS: Full code. INPATIENT DRESSAGE INSTRUCTOR: Dr. Gonzalez was primary while in hospital. [facility] was consulted for medical comanagement. TEST RESULTS PENDING ON DISCHARGE: None. ALLERGIES: NO KNOWN DRUG ALLERGIES. DISCHARGE PLAN: Posthospital, the patient will follow up with Dr. Yovanny Gonzalez on June 26, 2018, at 9:45 a.m. The patient will make appointment with primary care physician in one week. HOSPITAL COURSE: A 62-year-old female, who has pretty much osteoarthritis and that she failed all conservative treatment options as an outpatient basis. Dr. Gonzalez admitted this patient for right total knee replacement, which was done on June 04, 2018, without any complications. Postoperatively, she was given aspirin for DVT prophylaxis. She had a nerve block. She did PT and OT as per [facility] protocol treatment. Her pain was controlled with pain medication. [facility] was consulted for medical comanagement. The patient's medical problems remained stable. The patient is planned for discharge by primary team today. The patient is seen and examined at bedside today. REVIEW OF SYSTEMS: All review of systems reviewed with her and negative. PHYSICAL EXAMINATION: VITAL SIGNS: Currently, temperature 98.5, pulse 88, respiratory rate 18, saturation 93% on room air, and blood pressure 165/73. Weight 315 pounds. GENERAL: The patient is currently alert and awake, in no obvious acute distress. HEENT: Head; normocephalic and atraumatic. Eyes; pupils are round, reactive to light. Extraocular muscle intact. ENT, oropharynx within normal limit. Moist mucous membranes. No oral lesion. No pharyngeal erythema. No exudate. NECK: Supple. No JVD. No thyromegaly. No carotid bruit. LUNGS: Clear to auscultation without any rhonchi or rales. CARDIAC: S1 and S2, regular without any murmur. ABDOMEN: Soft and benign without any tenderness. EXTREMITIES: No edema. NEUROLOGIC: Nonfocal examination. The patient is medically stable for discharge today. Job ID: [id number]
--- NOTE | 2018-06-08 06:01 | DIS ---
DATE OF ADMISSION: 06/04/2018 DATE OF DISCHARGE: 06/07/2018 Dictating on behalf of Yovanny Gonzalez MD. CONSULTANTS: 1. [facility]. 2. [facility]. PREOPERATIVE DIAGNOSIS: Degenerative arthritis, right knee. POSTOPERATIVE DIAGNOSIS: Degenerative arthritis, right knee. PROCEDURE PERFORMED: Right total knee arthroplasty. BRIEF HOSPITAL COURSE: This is a 62-year-old female with ongoing knee pain. She failed conservative management and was indicated for the above-mentioned procedure. Postoperatively, the patient was admitted to the surgical floor, where she worked with [facility]. Pain was controlled by [facility]. She also received postoperative antibiotics. No complications were incurred during her hospital stay. On postoperative day #3, she was discharged to home. DISCHARGE DISPOSITION: Home. DISCHARGE CONDITION: Stable. DISCHARGE MEDICATIONS: See MAR. Job ID: [id number]
== END 2018-06-07 10:34 | disposition home or self-care (01) | DRG 470 ==
LOC: SJJU 06-04 05:47
PROVIDERS: ADMIT Orthopaedic Surgery; ATTEND Orthopaedic Surgery
PROC: 0SRC0J9 Replacement of Right Knee Joint with Synthetic Substitute, Cemented, Open Approach (ICD-10-PCS; principal; 2018-06-04)
DX: M17.11 Unilateral primary osteoarthritis, right knee (principal); Z68.42 Body mass index [BMI] 45.0-49.9, adult; M47.816 Spondylosis without myelopathy or radiculopathy, lumbar region; E66.01 Morbid (severe) obesity due to excess calories; D64.9 Anemia, unspecified
CPT/HCPCS: 36415; 85027; A4306; C1713; C1776; J1885; J2001; J2250; J2405; J2704; J2795; J3010; J3370; J7050; S0020

== ENCOUNTER 2019-07-22 20:40 | Emergency (ER) | payer BC | END 2019-07-22 23:20 | disposition home or self-care (01) | LOC: ERS 20:40 | DX: H57.12 Ocular pain, left eye (principal) | CPT/HCPCS: 99283 ==

== ENCOUNTER 2021-04-27 12:53 | Outpatient (CLI) | payer BC | END 2021-04-27 12:54 | disposition home or self-care (01) | LOC: BICMAMMO 12:53 | PROVIDERS: ATTEND Obstetrics & Gynecology | DX: Z12.31 Encounter for screening mammogram for malignant neoplasm of breast (principal); Z80.3 Family history of malignant neoplasm of breast | CPT/HCPCS: 77063; 77067 ==

== ENCOUNTER 2022-05-30 12:30 | Outpatient (CLI) | payer BC | END 2022-05-30 12:31 | disposition home or self-care (01) | LOC: BICMAMMO 12:30 | PROVIDERS: ATTEND Family Medicine | DX: Z12.31 Encounter for screening mammogram for malignant neoplasm of breast (principal); Z80.3 Family history of malignant neoplasm of breast | CPT/HCPCS: 77063; 77067 ==

== ENCOUNTER 2022-08-22 12:26 | Outpatient (CLI) | payer BC ==
[~2022-08-22 12:26] MED LIST: Iopamidol 370 76% 100 ML VIAL ONE
== END 2022-08-22 12:27 | disposition home or self-care (01) ==
LOC: BICCT 12:26
PROVIDERS: ATTEND Urology
DX: R31.29 Other microscopic hematuria (principal); K57.30 Diverticulosis of large intestine without perforation or abscess without bleeding
CPT/HCPCS: 74178; 82565; Q9967

== ENCOUNTER 2025-01-28 10:49 | Outpatient (CLI) | payer BC | END 2025-01-28 10:50 | disposition home or self-care (01) | LOC: BICMAMMO 10:49 | PROVIDERS: ATTEND Family Medicine | DX: Z12.31 Encounter for screening mammogram for malignant neoplasm of breast (principal); Z80.3 Family history of malignant neoplasm of breast | CPT/HCPCS: 77063; 77067 ==